=== PATIENT | male | born 1985 | race Caucasian/White ===

== ENCOUNTER 2021-02-19 07:40 | Emergency (ER) | payer OTHER, SELFPAY ==
[2021-02-19] MEDS ORDERED: Lidocaine 1% w/Epinephrine 1:100K 20 ML VIAL ONE (08:01)
[2021-02-19] MEDS ORDERED: Acetaminophen 500 MG TAB ONE (08:14)
== END 2021-02-19 08:20 | disposition home or self-care (01) ==
LOC: MADERS 07:40
DX: S01.01XA Laceration without foreign body of scalp, initial encounter (principal); F17.210 Nicotine dependence, cigarettes, uncomplicated; W01.198A Fall on same level from slipping, tripping and stumbling with subsequent striking against other object, initial encounter
CPT/HCPCS: 12002

== ENCOUNTER 2021-02-25 10:45 | Emergency (ER) | payer OTHER | END 2021-02-25 12:18 | disposition home or self-care (01) | LOC: MADERS 10:45 | DX: S43.004D Unspecified dislocation of right shoulder joint, subsequent encounter (principal); S01.01XD Laceration without foreign body of scalp, subsequent encounter; F17.210 Nicotine dependence, cigarettes, uncomplicated ==